=== PATIENT | male | born 2005 | race Caucasian/White ===

== ENCOUNTER 2023-06-17 09:14 | Emergency (ER) | payer OTHER, SELFPAY ==
[2023-06-17 09:25] VITALS: BP 121/71; PULSE 86; RESP 20; TEMP 36.8; O2SAT 100; BMI 18.9
--- NOTE | 2023-06-17 14:20 | ED_ITS ---
HPI - General Adult General Chief complaint: Anxiety Stated complaint: throat closing not sore diff breathing Time Seen by Provider: 06/17/23 13:15 History of Present Illness HPI narrative: Patient complains of episodes that resolve on their own, 3 episodes in the past week where he feels anxious he has tingling in his fingertips he feels like it is hard to catch his breath, and the main complaint is he feels like his throat is closing during these episodes, they resolve completely, he has had many similar episodes in the past but they have been more frequent and he has felt more anxious with these episodes he does not hear voices he does not use any street drugs, he does not drink he has no suicidal or homicidal thoughts, he has no chest pain, no irregular heartbeat no fainting or feeling faint Related Data Previous Rx's Medication Instructions Recorded lorazepam 0.5 mg tablet (Ativan) 0.5 mg PO DAILY PRN anxiety #10 06/17/23 tabs Allergies Allergy/AdvReac Type Severity Reaction Status Date / Time No Known Allergies Allergy Unverified 03/17/20 17:38 [No Known Allergies*] [facility] Past Medical History Source: nursing notes reviewed Social History Social History Advance Directives: No Advance Directives Information Provided: No Physical Exam ED Vital Signs: Vital Signs - 24 hr 06/17/23 09:25 Temperature 98.2 F Pulse Rate 86 Respiratory Rate 20 Blood Pressure 121/71 Pulse Oximetry 100 Oxygen Delivery Method Room Air BMI result Body Mass Index 18.9 General appearance is common comfortable cooperative alert no difficulty breathing or swallowing speaking full sentences The pharynx is clear without redness swelling or exudate, voice is normal, there is no drooling no trismus, throat is palpated during swallowing and he swallows easily The neck is supple, there is no stridor Chest is clear to auscultation with full symmetric of breath sounds Heart no murmur, rate and rhythm regular Extremities full range of motion x4 Skin no rash Neuro gait and balance are normal, interaction comprehension and expression are normal, motor is 5/5 x4, no focal deficits Course Course Course Narrative: Well-appearing patient with a history of mild anxiety who is having more frequent and severe episodes of anxiety attacks that now included feeling that his throat is closing, they may have been triggered by family difficulty in that his parents may be He has no thoughts of self-harm no suicidal thoughts no hearing voices He is asymptomatic now and feels fine at this moment and gives a very good description of anxiety attacks, he has never abused any substance and 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 I discussed writing a trial of Ativan, and he understands that it is a treatment only for acute anxiety attacks it is not preventive and it is habit forming if use to frequently or abused Discharge Plan Discharge Clinical Impression: Anxiety Patient Disposition: Home, Self-Care Additional Instructions: Your exam was totally normal, your vital signs are normal The symptoms you described including a feeling of throat closing that resolves fully are consistent with anxiety attacks The medication Ativan is usually very effective in treating anxiety attacks, but it can make you sleepy or drowsy in make it unsafe to drive so this medicine should not be used when you are driving or operating machinery It is habit forming so should only be used as needed, it is not a regular treatment for anxiety If the symptoms happen frequently talk to primary care doctor about preventative medicines for anxiety which often have to be adjusted, there are many very effective medications if you need Return any time for suicidal thoughts chest pain any worse condition or any concerns Prescriptions: New lorazepam [Ativan] 0.5 mg tablet 0.5 mg PO DAILY PRN (Reason: anxiety) Qty: 10 0RF
== END 2023-06-17 14:39 | disposition home or self-care (01) ==
PROVIDERS: Emergency Provider Emergency Medicine; PCP Pediatrics
DX: F41.1 Generalized anxiety disorder (principal); F43.0 Acute stress reaction; R06.02 Shortness of breath
CPT/HCPCS: 99282; 99283

== ENCOUNTER 2023-11-05 06:47 | Emergency (ER) | payer OTHER, SELFPAY ==
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
[2023-11-05 06:56] VITALS: BP 144/74; BP 144/88; PULSE 107; PULSE 112; RESP 20; TEMP 37.1; O2SAT 99; BMI 21.0
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
[2023-11-05 07:50] LABS: MANUAL DIFF FLAG NO
[2023-11-05] MEDS: Ketorolac Tromethamine 30 MG/ML VIAL IVPUSH (07:53)
[2023-11-05 07:54] LABS: Basophils Percent Auto 0.4 % (0-2); Eosinophils Absolute Auto 0.2 X10*3/uL (0.0-0.4); Eosinophils Percent Auto 2.9 % (0-4); Hematocrit 43.5 % (42.0-52.0); Hemoglobin 14.9 g/dl (14.0-18.0); Imm Gran Abs Auto 0.02 X10*3/uL (0.00-0.03); Imm Gran Pct Auto 0.3 % (0.0-0.4); Lymphocytes Absolute Auto 2.4 X10*3/uL (1.2-4.9); Lymphocytes Percent Auto 32.1 % (20-40); Mean Corpuscular HGB Conc 34.3 g/dl (31.0-36.0); Mean Corpuscular Hemoglobin 30.9 pg (27.0-33.0); Mean Corpuscular Volume 90.2 fL (80.0-98.0); Mean Platelet Volume 9.8 fL (9.4-12.4); Monocytes Absolute Auto 0.6 X10*3/uL (0.1-1.2); Monocytes Percent Auto 7.3 % (2-11); Neutrophils Absolute Auto 4.3 x10*3/uL (2.0-8.3); Platelet Count 219 X10*3/uL (160-400); Red Blood Count 4.82 X10*6/uL (4.60-5.80); Red Cell Distribution Width 12.1 % (11.0-16.0); White Blood Count 7.5 X10*3/uL (4.8-10.8)
[2023-11-05] MEDS: Bacitracin Oint 0.9 GM PACKET 3 APPL TOPICAL (07:54)
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
[2023-11-05 08:08] LABS: INTERNATIONAL NORM RATIO 1.1 (0.9-1.1); Prothrombin Time 13.4 SEC (11.1-13.3)
[2023-11-05 08:10] LABS: Alanine Aminotransferase 34 U/L (0-40); Albumin Level 4.5 g/dL (3.5-5.0); Alkaline Phosphatase 86 U/L (39-117); Anion Gap 18 (12-20); Aspartate Amino Transferase 35 U/L (5-37); Bilirubin Total 0.5 mg/dL (0.0-1.0); Blood Urea Nitrogen 13 mg/dL (9-16); Calcium 9.8 mg/dL (8.4-10.2); Carbon Dioxide 24 mmol/L (22-29); Chloride 104 mmol/L (96-108); Estimated Glomerular Filt Rate > 60; Glucose Random 112 mg/dL (60-115); Magnesium 1.8 mg/dL (1.6-2.6); Potassium 3.6 mmol/L (3.3-5.1); Sodium 142 mmol/L (135-145); Total Protein 7.9 g/dL (6.5-8.0)
[2023-11-05 10:13] VITALS: BP 120/71; PULSE 101; RESP 12; TEMP 37.1; O2SAT 99
--- NOTE | 2023-11-05 10:25 | MHC.EDTECH ---
with verbal orders from RN, bacitracin was placed on pt's left ankle wound and left should wound. both abrasions are not actively bleeding, are dry and pink and color. pt tolerated well, rn aware
[2023-11-05] MEDS: Acetaminophen 325 MG TABLET 975 MG PO (10:47)
[2023-11-05] MEDS: iohexoL 350 MG/ML 100 ML INFUS..BTL 85 ML IV (11:24)
[2023-11-05 12:40] VITALS: BP 108/64; PULSE 97; RESP 14; TEMP 37.4; O2SAT 100
[2023-11-05 14:35] VITALS: BP 108/64; PULSE 97; RESP 14; TEMP 37.4; O2SAT 100
== END 2023-11-05 14:35 | disposition home or self-care (01) ==
PROVIDERS: Physician Assistant; Emergency Provider Emergency Medicine Emergency Medical Services
DX: S06.0X0A Concussion without loss of consciousness, initial encounter (principal); S93.402A Sprain of unspecified ligament of left ankle, initial encounter; S51.012A Laceration without foreign body of left elbow, initial encounter; S90.512A Abrasion, left ankle, initial encounter; S40.212A Abrasion of left shoulder, initial encounter; S70.211A Abrasion, right hip, initial encounter; G89.11 Acute pain due to trauma; M79.672 Pain in left foot; M71.50 Other bursitis, not elsewhere classified, unspecified site; V28.49XA Other motorcycle driver injured in noncollision transport accident in traffic accident, initial encounter; Y93.9 Activity, unspecified; Y92.410 Unspecified street and highway as the place of occurrence of the external cause; Y99.9 Unspecified external cause status
CPT/HCPCS: 12001; 36415; 70450; 71260; 72125; 73030; 73200; 73610; 74177; 80053; 83735; 85025; 85610; 96374; 99284; J1885; Q9967

== ENCOUNTER 2023-11-15 10:27 | Outpatient (AMB) | payer OTHER, SELFPAY ==
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
== END 2023-11-15 11:27 | disposition home or self-care (01) ==
PROVIDERS: Visit Provider Physician Assistant
DX: S40.212A Abrasion of left shoulder, initial encounter (principal); S50.312A Abrasion of left elbow, initial encounter; S92.355A Nondisplaced fracture of fifth metatarsal bone, left foot, initial encounter for closed fracture; Z04.3 Encounter for examination and observation following other accident
CPT/HCPCS: 99204

== ENCOUNTER 2023-11-15 10:27 | Outpatient (REF) | payer OTHER, SELFPAY ==
--- NOTE | ~2023-11-15 | XR_ITS ---
EXAMINATION: XR FOOT, LEFT CLINICAL INFORMATION: Pain in the foot COMPARISON: None available. TECHNIQUE: AP, lateral, and oblique views of the left foot. FINDINGS: This exam is submitted for review 12/01/2023. Suspect nondisplaced incomplete fracture along the lateral cortex of the proximal fifth metatarsal in the metaphyseal region. The bones joints soft tissues are otherwise unremarkable.. XR/XR foot LT min 3V IMPRESSION: Suspect nondisplaced incomplete fracture of the proximal fifth metatarsal.
== END 2023-11-15 10:28 | disposition home or self-care (01) ==
LOC: HO.HOSX 10:27
PROVIDERS: Visit Provider Physician Assistant
DX: S92.355A Nondisplaced fracture of fifth metatarsal bone, left foot, initial encounter for closed fracture (principal); S40.212A Abrasion of left shoulder, initial encounter; S50.312A Abrasion of left elbow, initial encounter
CPT/HCPCS: 73630

== ENCOUNTER 2023-12-13 08:57 | Outpatient (REF) | payer OTHER, SELFPAY | END 2023-12-13 08:58 | disposition home or self-care (01) | LOC: HO.HOSX 08:57 | PROVIDERS: Visit Provider Physician Assistant | DX: Z13.89 Encounter for screening for other disorder (principal) ==

== ENCOUNTER 2024-10-25 01:55 | Emergency (ER) | payer OTHER, SELFPAY ==
[2024-10-25 01:59] VITALS: BP 114/77; PULSE 85; RESP 16; TEMP 36.8; O2SAT 98; BMI 18.5
--- NOTE | 2024-10-25 02:00 | PC.NURSE ---
per MD Perez, to hold off on imaging until patient is evaluated in ED.
--- OUTSIDE RECORDS SUMMARY | 2024-10-25 03:20 | XMS_ITS | Encounter Summary ---
Author Organization [facility] Address [address] [place] [address] Phone Care Team Providers Care Drawing In Machine Tender Helper Name Role Phone Cedrick Vigil MD Primary Care Provider [phone] Encounter Details Date Type Department Care Team (Late st Contact Info) Description 05/04/2016 Documentation [facility] [place] Family Medicine [address] [place] [address] Family Medicine, Physician [address] [place], [place] [phone] Social History Tobacco Use Types Packs/Day Years Used Date Smoking Tobacco: Never Assessed Sex and Gender Information Value Date Recorded Sex Assigned at Not on file Legal Sex Male 5:14 PM EDT Gender Identity Not on file Sexual Orientation Not on file documented as of this encounter Plan of Treatment Not on file documented as of this encounter Visit Diagnoses Not on filedocumented in this encounter Care Teams Drawing In Machine Tender Helper Relationship Specialty Start Date End Date Cedrick Vigil MD [address] [facility] [place] [address] PCP - General 02/08/17 04/28/24 documented as of this encounter
--- OUTSIDE RECORDS SUMMARY | 2024-10-25 03:20 | XMS_ITS | Encounter Summary ---
Author Organization [facility] Address [address] [place] [address] Phone Care Team Providers Care Hearing Examiner Name Role Phone Cedrick Vigil MD Primary Care Provider [phone] Encounter Details Date Type Department Care Team (Late st Contact Info) Description 05/04/2016 Documentation [facility] [place] Family Medicine [address] [place] [address] Family Medicine, Physician [address] [place], [place] [phone] Social History Tobacco Use Types Packs/Day Years [...] on filedocumented in this encounter Care Teams Hearing Examiner Relationship Specialty Start Date End Date Cedrick Vigil MD [address] [facility] [place] [address] PCP - General 02/08/17 04/28/24 documented as of this encounter
--- OUTSIDE RECORDS SUMMARY | 2024-10-25 03:20 | XMS_ITS | Encounter Summary ---
Author Organization [facility] Address [address] [place] [address] Phone Care Team Providers Care Drapery Supervisor Name Role Phone Cedrick Vigil MD Primary Care Provider [phone] Encounter Details Date Type Department Care Team (Late st Contact Info) Description 05/04/2016 Documentation [facility] [place] [address] [place] [address] Family Medicine, Physician [address] [place], [place] [phone] Social History Tobacco Use Types Packs/Day Years [...] on filedocumented in this encounter Care Teams Drapery Supervisor Relationship Specialty Start Date End Date Cedrick Vigil MD [address] [facility] [place] [address] PCP - General 02/08/17 04/28/24 documented as of this encounter
--- OUTSIDE RECORDS SUMMARY | 2024-10-25 03:20 | XMS_ITS | Encounter Summary ---
Author Organization [facility] Address [address] [place] [address] Phone Care Team Providers Care Propulsion Motor And Generator Repairer Name Role Phone Cedrick Vigil MD Primary Care Provider [phone] Encounter Details Date Type Department Care Team (Late st Contact Info) Description 05/04/2016 Documentation [facility] [place] Family Medicine [address] [place] [address] Family Medicine, Physician [address] [place], [place] [phone] Social History Tobacco Use Types Packs/Day Years [...] on filedocumented in this encounter Care Teams Propulsion Motor And Generator Repairer Relationship Specialty Start Date End Date Cedrick Vigil MD [address] [facility] [place] [address] PCP - General 02/08/17 04/28/24 documented as of this encounter
--- OUTSIDE RECORDS SUMMARY | 2024-10-25 03:20 | XMS_ITS | Clinical Summary ---
Author Organization [facility] Address [address] [place] [address] Phone Care Team Providers Care Drying Supervisor Name Role Phone Unavailable Primary Care Provider Unavailabl e Allergies No known active allergies Medications Cholecalcifero l (Vitamin D) 50 MCG (1999) tablet Take 2,000 Units by mouth daily. Active fluticasone (Flonase) 50 MCG/ACT nasal sprayIndicatio ns:Post-nasal drip Administer 2 sprays into each nostril once daily at approximately the same time each day for 14 days, THEN 1 spray once daily at approximately the same time each day. 11.1 mL 3 2 Active cetirizine (ZyrTEC Allergy) 10 MG tabletIndicati ons:Post-nasal drip Take 1 tablet (10 mg total) by mouth once daily at approximately the same time each day. 30 tablet 3 2 Active Active Problems Problem Noted Date Diagnosed Date Anxiety 10/22/2021 Pes planus 05/04/2016 Immunizations Immunization Administration Dates Next Due COVID-19 Pfizer, monovalent, 12+ years 1,11/23/2020 DTaP 10/29/2007, 5,2003,08/27,2003 HPV Vaccine 9 Valent 10/21/2017,05/04/2016 Hep A, ped/adol 02/11/2014,12/01/2012 Hep B, ped/adol 08/10/2004,01/20/2004,2003 HiB 08/10/2004,2003,2003 Hib (PRP-T) 2003 IPV 10/29/2007, 4,2003,06/17 Influenza, injectable, quadrivalent 05/04/2016 Influenza, injectable, quadr ivalent, preservative free 04/05/2020,03/16/2019 Influenza, injectable, triva lent, preservative free 02/22/2015 MMR 10/29/2007,05/05/2004 Meningococcal Conj (Menactra) MCV4P 04/05/2020,0 02/22/2015 Pneumococcal Conjugate 13-Valent 12/08/2004,09/30,2003 Tdap 02/22/2015 Varicella 10/29/2007,12/08/2004 Family History Medical History Relation Name Comments Asthma Brother Asthma Father Ramon Migraines Mother Bar Relation Name Status Comments Brother Brother: Asthma Father Ramon Father: Asthma Mother Bar Mother: Migrain es, Alive and well Paternal Grandfather Paterna l grandfather: Obesity, High cholesterol, Diabetes mellitus Social History Tobacco Use Types Packs/Day Years Used Date Smoking Tobacco: Never Smokeless Tobacco: Never Hunger/Food Answer Date Recorded In the last 12 months, did y ou or your family ever eat less than you felt you should because there wasn't enough money for food? No 05/04/2021 Stable Housing Answer Date Recorded Are you worried that in the next 2 months you may not have stable housing? No 05/04/2021 Transportation Concerns Answer Date Rec orded In the last 12 months, have you or your family ever had to go without healthcare because you didn't have a way to get there? No 05/04/2021 Hazards in Home Answer Date Recorded Think about the place you li ve. Do you have problems with any of the following? Pests (mice or roaches), mold, no/not working smoke detectors, water leaks, no window guards. No 2020 Financing Utilities Answer Date Recorde d In the last 12 months, has t he electric, gas, oil, or water company threatened to shut off your services in your home? No 05/04/2021 Safety at Home Answer Date Recorded Are you or your family worried about feeling saf e in your home? No 05/04/2021 Outside Support Answer Date Recorded Do you feel that you need mo re support from other people or programs to help you care for yourself or your family? No 05/04/2021 Understanding Health Concerns Answer Da te Recorded Do you need help understandi ng your or your child's healthcare needs (diagnosis, medications, plan, etc.)? No 05/04/2021 Financing Health Concerns Answer Date R ecorded In the last 12 months, was t here a time when your child needed to see a doctor or get medications or supplies but could not because of cost? No 05/04/2021 Missing School or Work Answer Date Harsh rded Did you or your child miss s chool or work because of a health problem that could have been avoided? No 05/04/2021 Sex and Gender Information Value Date Recorded Sex Assigned at Not on file Legal Sex Male 5:14 PM EDT Gender Identity Not on file Sexual Orientation Not on file Last Filed Vital Signs Vital Sign Reading Time Taken Comments Blood Pressure 118/78 02/26/2022 4:14 PM EDT Pulse 79 02/26/2022 4:14 PM EDT Temperature 36.7 ??C (98 ??F) 02/26/2022 4:14 PM EDT Respiratory Rate - - Oxygen Saturation - - Inhaled Oxygen Concentration - - Weight 67 kg (147 lb 9.6 oz) 02/26/2022 4:14 PM EDT Height 184.8 cm (6' 0.75 ) 05/04/2021 1:26 PM ED T Body Mass Index 19.61 05/04/2021 1:26 PM EDT Plan of Treatment Health Maintenance Due Date Last Done Comments Men B Vaccine (1 of 2 - Standard) 2019 Influenza Vaccines (#1) 2024 04/05/20 20, 03/16/2019, 05/04/2016, Additional history exists COVID-19 Vaccine (3 - 2023-2 5 season) 2024 12/14/2020, 11/23/2020 DTaP,Tdap,and Td Vaccines (7 - Td or Tdap) 02/22/2025 02/22/2015, 10/29/2007, 08/10/2004, Additional history exists HIB Vaccines Completed 08/10/2004, 09/30, 2003, Additional history exists Hepatitis B Vaccines Completed 08/10/2004, 01/20/2004, 2003 Pneumococcal Vaccine Completed 12/08/2004, 2003, 2003 IPV Vaccines Completed 10/29/2007, 10/2003, 2003, Additional history exists MMR Vaccines Completed 10/29/2007, 05/05/2004 Varicella Vaccines Completed 10/29/2007, 12/08/2004 Hepatitis A Vaccines Completed 02/11/2014, 12/02/19 13 HPV Vaccines Completed 10/21/2017, 05/04/2016 Meningococcal Vaccine Completed 04/05/2020, 015 Insurance [facility]
--- OUTSIDE RECORDS SUMMARY | 2024-10-25 03:20 | XMS_ITS | Encounter Summary ---
Author Organization [facility] Address [address] [place] [address] Phone Care Team Providers Care Cloud Software Engineer Name Role Phone Cedrick Vigil MD Primary Care Provider [phone] Encounter Details Date Type Department Care Team (Late st Contact Info) Description 05/04/2016 Documentation [facility] [place] Family Medicine [address] [place] [address] Family Medicine, Physician [address] [place], [place] [phone] Social History Tobacco Use Types Packs/Day Years [...] on filedocumented in this encounter Care Teams Cloud Software Engineer Relationship Specialty Start Date End Date Cedrick Vigil MD [address] [facility] [place] [address] PCP - General 02/08/17 04/28/24 documented as of this encounter
--- OUTSIDE RECORDS SUMMARY | 2024-10-25 03:20 | XMS_ITS | Encounter Summary ---
Author Organization [facility] Address [address] [place] [address] Phone Care Team Providers Care Senior Environmental Scientist Name Role Phone Cedrick Vigil MD Primary Care Provider [phone] Encounter Details Date Type Department Care Team (Late st Contact Info) Description 02/14/2017 Conversion Encounter [facility] [place] [address] [place] [address] Social History Tobacco Use Types Packs/Day Years [...] on filedocumented in this encounter Care Teams Senior Environmental Scientist Relationship Specialty Start Date End Date Cedrick Vigil MD [address] [place] [address] PCP - General 02/08/17 04/28/24 documented as of this encounter
--- OUTSIDE RECORDS SUMMARY | 2024-10-25 03:20 | XMS_ITS | Encounter Summary ---
Author Organization [facility] Address [address] [place] [address] Phone Care Team Providers Care Technology Officer Name Role Phone Cedrick Vigil MD Primary Care Provider [phone] Encounter Details Date Type Department Care Team (Late st Contact Info) Description 05/04/2016 Documentation [facility] [place] Family Medicine [address] [place] [address] Family Medicine, Physician [address] [place], [place] [phone] Social History Tobacco Use Types Packs/Day Years [...] on filedocumented in this encounter Care Teams Technology Officer Relationship Specialty Start Date End Date Cedrick Vigil MD [address] [facility] [place] [address] PCP - General 02/08/17 04/28/24 documented as of this encounter
--- NOTE | 2024-10-25 04:08 | PC.NURSE ---
Pt states girlfriend is tired and wants to go home to sleep . LWBS at this time.
== END 2024-10-25 04:12 | disposition left against medical advice (07) ==
PROVIDERS: Emergency Provider Emergency Medicine
DX: R51.9 Headache, unspecified (principal); R11.2 Nausea with vomiting, unspecified; Z53.21 Procedure and treatment not carried out due to patient leaving prior to being seen by health care provider
CPT/HCPCS: 99281

== ENCOUNTER 2024-11-20 10:58 | Outpatient (AMB) | payer OTHER, SELFPAY ==
--- NOTE | 2024-11-20 11:01 | A.OFFPC_ITS ---
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 there are several other numbers to call depending on your needs: Occitan Language: Deaf and Hard of [phone] Veterans: Disaster Distress: Anyone can also use their online chat feature on their website. National Suicide Prevention Lifeline [facility] Helpline: The [facility] Helpline is available to anyone in [place] who is need of emotional support. Anyone can call or text the helpline to receive help from specially trained volunteers. [place] high school and college students can also get online support through the IMHear_ program. For high school students, volunteers ages 15-18 are available Saturday- from 6-9PM. For college students, IMHear_ is available Saturday-Saturday from 5-9PM. The Mekhi Project - The Mekhi Project is a 21/01 crisis intervention and suicide prevention hotline for LGBTQ youth. Youth can also text Mekhi to for support, or use the online chat feature on the Mekhi Project's website. TrevorText is available Saturday-Saturday between 3-10PM. TrevorChat is available seven days a week between 3-10PM. SafeLink: SafeLink is for anyone who is being affected by domestic violence or dating violence. Volunteers at [employer] speak Burkinan and Occitan, and [employer] also has a service that can provide translation in more than 130 languages. TTY: Health screenings for men You should visit your health care provider regularly, even if you feel healthy. The purpose of these visits is to: Screen for medical issues Assess your risk for future medical problems Encourage a healthy lifestyle Update vaccinations and other preventive care services Help you get to know your provider in case of an illness Information Even if you feel fine, you should still see your provider for regular checkups. These visits can help you avoid problems in the future. For example, the only way to find out if you have high blood pressure is to have it checked regularly. High blood sugar and high cholesterol level also may not have any symptoms in the early stages. Simple blood tests can check for these conditions. There are specific times when you should see your provider or receive specific health screenings. The US Preventive Services Task Force publishes a list of recommended screenings. Below are screening guidelines for men ages 40 to 64. BLOOD PRESSURE SCREENING Have your blood pressure checked at least once every year. Watch for blood pressure screenings in your area. Ask your provider if you can stop in to have your blood pressure checked. Ask your provider if you need your blood pressure checked more often if: You have diabetes, heart disease, kidney problems, or are overweight or have certain other health conditions You have a first-degree relative with high blood pressure You are Black Your blood pressure top number is from 120 to 129 mm Hg, or the bottom number is from 70 to 79 mm Hg If the top number is 130 mm Hg or greater or the bottom number is 80 mm Hg or greater, this is considered stage 1 hypertension. Schedule an appointment with your provider to learn how you can lower your blood pressure. Effects of age on blood pressure CHOLESTEROL SCREENING Cholesterol screening should begin at age 35 for men with no known risk factors for coronary heart disease. Repeat cholesterol screening should take place: Every 5 years for men with normal cholesterol levels More often if changes occur in lifestyle (including weight gain and diet) More often if you have diabetes, heart disease, kidney problems, or certain other conditions COLORECTAL CANCER SCREENING If you are under age 45, talk to your provider about getting screened. You may need to be screened if you have a strong family history of colon cancer or polyps. Screening may also be considered if you have risk factors such as a history of inflammatory bowel disease or polyps. If you are age 45 to 75, you should be screened for colorectal cancer. There are several screening tests available: A stool-based fecal occult blood (gFOBT) or fecal immunochemical test (FIT) every year A stool sDNA test every 1 to 3 years Flexible sigmoidoscopy every 5 years or every 10 years with stool testing FIT done every year CT colonography (virtual colonoscopy) every 5 years Colonoscopy every 10 years You may need a colonoscopy more often if you have risk factors for colorectal cancer, such as: Ulcerative colitis A personal or family history of colorectal cancer A history of growths in your colon called adenomatous polyps DENTAL EXAM Go to the dentist once or twice every year for an exam and cleaning. Your dentist will evaluate if you have a need for more frequent visits. DIABETES SCREENING All adults who do not have risk factors for diabetes should be screened starting at age 35 and repeated every 3 years. If you have other risk factors for diabetes, such as a first degree relative with diabetes, overweight or obesity, high blood pressure, prediabetes, or a history of heart disease, you may be tested more often. If you are overweight and have other risk factors, such as high blood pressure and are planning to become , screening is recommended. EYE EXAM Have an eye exam every 2 to 4 years ages 40 to 54 and every 1 to 3 years ages 55 to 64. Your provider may recommend more frequent eye exams if you have vision problems or glaucoma risk. Have an eye exam that includes an examination of your retina (back of your eye) at least every year if you have diabetes. IMMUNIZATIONS Commonly needed vaccines include: Flu shot: get one every year COVID-19 vaccine: ask your provider what is best for you Tetanus-diphtheria and acellular pertussis (Tdap) vaccine: have as one of your tetanus-diphtheria vaccines if you did not receive it as an adolescent Tetanus-diphtheria: have a booster (or Tdap) every 10 years Varicella vaccine: receive 2 doses if you never had chickenpox or the varicella vaccine and were born in 1980 or after Hepatitis B vaccine: receive 2, 3, or 4 doses, depending on your exact circumstances, if you did not receive these as a child or adolescent, until age 59 Shingles (herpes zoster) vaccine: at or after age 50 Ask your provider if you should receive other immunizations, especially if you have certain medical conditions, such as diabetes or are at increased risk for some diseases such as pneumonia. INFECTIOUS DISEASE SCREENING Screening for hepatitis C: all adults ages 18 to 79 should get a one-time test for hepatitis C. Screening for human immunodeficiency virus (HIV): all people ages 15 to 65 should get a one-time test for HIV. Depending on your lifestyle and medical history, you may need to be screened for infections such as syphilis, chlamydia, and other infections. LUNG CANCER SCREENING You should have an annual screening for lung cancer with low-dose computed tomography (LDCT) if: You are age 50 to 80 years AND You have a 20 pack-year smoking history AND You currently smoke or have quit within the past 15 years OSTEOPOROSIS SCREENING If you are age 50 to 64 and have risk factors for osteoporosis, you should discuss screening with your provider. Risk factors can include long-term steroid use, low body weight, smoking, heavy alcohol use, having a fracture after age 50, or a family history of hip fracture or osteoporosis. Osteoporosis PHYSICAL EXAM All adults should visit their provider from time to time, even if they are healthy. The purpose of these visits is to: Screen for diseases Assess risk of future medical problems Encourage a healthy lifestyle Update vaccinations and other preventive care services Maintain a relationship with a provider in case of an illness Your height, weight, and body mass index (BMI) should be checked at every exam. During your exam, your provider may ask you about: Depression and anxiety Diet and exercise Alcohol and tobacco use Safety, such as use of seat belts and smoke detectors Your medicines and risk for interactions PROSTATE CANCER SCREENING If you're 55 through 69 years old, before having the test, talk to your provider about the pros and cons of having a PSA test. Ask about: Whether screening decreases your chance of dying from prostate cancer. Whether there is any harm from prostate cancer screening, such as side effects from testing or overtreatment of cancer when discovered. Whether you have a higher risk of prostate cancer than others. If you are age 55 or younger, screening is not generally recommended. You should talk with your provider about if you have a higher risk for prostate cancer. Risk factors include: Having a family history of prostate cancer (especially a brother or father) Being If you choose to be tested, the PSA blood test is repeated over time (yearly or less often), though the best frequency is not known. Prostate examinations are no longer routinely done on men with no symptoms. Prostate cancer SKIN EXAM Your provider may check your skin for signs of skin cancer, especially if you're at high risk. People at high risk include those who have had skin cancer before, have close relatives with skin cancer, or have a weakened immune system. TESTICULAR EXAM The US Preventive Services Task Force (USPSTF) now recommends against performing testicular self-exams. Doing testicular self-exams has been shown to have little to no benefit.
[2024-11-20 11:06] VITALS: BP 117/66; PULSE 69; RESP 12; TEMP 36.1; O2SAT 98; BMI 20.1
--- OUTSIDE RECORDS SUMMARY | 2024-11-20 11:06 | XMS_ITS | Encounter Summary ---
Author Organization [facility] Address [address] [place] [address] Phone Care Team Providers Care Pharmaceutical Plant Operator Name Role Phone Cedrick Vigil MD Primary Care Provider [phone] Encounter Details Date Type Department Care Team (Late st Contact Info) Description 02/14/2017 Conversion Encounter [facility] [place] [address] [place] [address] Social History Tobacco Use Types Packs/Day Years [...] on filedocumented in this encounter Care Teams Pharmaceutical Plant Operator Relationship Specialty Start Date End Date Cedrick Vigil MD [address] [place] [address] PCP - General 02/08/17 04/28/24 documented as of this encounter
== END 2024-11-20 11:43 | disposition home or self-care (01) ==
LOC: HO.HMCFM 10:59
PROVIDERS: PCP Nurse Practitioner Family; Visit Provider Nurse Practitioner Family
DX: Z00.00 Encounter for general adult medical examination without abnormal findings (principal); J45.20 Mild intermittent asthma, uncomplicated; Z76.89 Persons encountering health services in other specified circumstances; F41.1 Generalized anxiety disorder; Z28.21 Immunization not carried out because of patient refusal; Z80.0 Family history of malignant neoplasm of digestive organs; L70.0 Acne vulgaris

== ENCOUNTER → 2024-11-20 10:58 | Outpatient (BNVA) | payer OTHER, SELFPAY | PROVIDERS: PCP Nurse Practitioner Family; Visit Provider Nurse Practitioner Family | DX: Z13.89 Encounter for screening for other disorder (principal) ==

== ENCOUNTER 2024-11-20 11:35 | Outpatient (REF) | payer OTHER, SELFPAY ==
[2024-11-20 14:24] LABS: Hematocrit 40.5 % (42.0-52.0); Hemoglobin 14.2 g/dl (14.0-18.0); Mean Corpuscular HGB Conc 35.1 g/dl (31.0-36.0); Mean Corpuscular Hemoglobin 30.8 pg (27.0-33.0); Mean Corpuscular Volume 87.9 fL (80.0-98.0); Mean Platelet Volume 10.5 fL (9.4-12.4); Platelet Count 220 X10*3/uL (160-400); Red Blood Count 4.61 X10*6/uL (4.60-5.80); White Blood Count 5.5 X10*3/uL (4.8-10.8)
[2024-11-20 14:35] LABS: Estimated Average Glucose 105 mg/dL; Hemoglobin A1C 126.7777 umol/L; Hemoglobin A1c % 5.3 % (<6.0); Total Hemoglobin (HGBA1C) 3737.7129 umol/L
[2024-11-20 14:45] LABS: Alanine Aminotransferase 26 U/L (0-40); Albumin Level 4.6 g/dL (3.5-5.0); Alkaline Phosphatase 79 U/L (39-117); Anion Gap 10 (12-20); Aspartate Amino Transferase 32 U/L (5-37); Bilirubin Total 0.8 mg/dL (0.0-1.0); Blood Urea Nitrogen 14 mg/dL (9-16); Calcium 9.5 mg/dL (8.4-10.2); Carbon Dioxide 25 mmol/L (22-29); Chloride 109 mmol/L (96-108); Cholesterol 128 mg/dL (<200); Estimated Glomerular Filt Rate > 60; Glucose Random 95 mg/dL (60-115); HDL Cholesterol 50 mg/dL (>40); LDL Cholesterol Calculated 68 mg/dL (<100); Potassium 3.5 mmol/L (3.3-5.1); Sodium 140 mmol/L (135-145); Total Protein 7.3 g/dL (6.5-8.0); Triglycerides 53 mg/dL (<150)
[2024-11-20 15:05] LABS: TSH reflex Free T4 0.91 uIU/mL (0.32-4.0)
[2024-11-20 15:13] LABS: Vitamin B12 261 pg/mL (200-900)
[2024-11-20 15:28] LABS: Creatinine Urine 183.16 mg/dL; Microalbum/Creatinine Ratio Ur 3.2 ug/mg cr (<30)
== END 2024-11-20 11:36 | disposition home or self-care (01) ==
LOC: HO.WFDLDS 11:35
PROVIDERS: Visit Provider Nurse Practitioner Family
DX: Z00.01 Encounter for general adult medical examination with abnormal findings (principal); Z76.89 Persons encountering health services in other specified circumstances; F41.1 Generalized anxiety disorder; J45.20 Mild intermittent asthma, uncomplicated; L70.0 Acne vulgaris; Z28.21 Immunization not carried out because of patient refusal; Z80.0 Family history of malignant neoplasm of digestive organs; Z13.1 Encounter for screening for diabetes mellitus
CPT/HCPCS: 36415; 80053; 80061; 82043; 82306; 82570; 82607; 82746; 83036; 84443; 85027; 96127

== ENCOUNTER 2025-01-29 14:52 | Outpatient (AMB) | payer OTHER, SELFPAY ==
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
--- OUTSIDE RECORDS SUMMARY | 2025-01-29 14:55 | XMS_ITS | Encounter Summary ---
Author Organization [facility] Address [address] [place] [address] Phone Care Team Providers Care Lathe Turner Name Role Phone Cedrick Vigil MD Primary Care Provider [phone] Encounter Details Date Type Department Care Team (Late st Contact Info) Description 02/14/2017 Conversion Encounter [facility] [place] [address] [place] [address] Social History Tobacco Use Types Packs/Day Years [...] on filedocumented in this encounter Care Teams Lathe Turner Relationship Specialty Start Date End Date Cedrick Vigil MD [address] [place] [address] PCP - General 02/08/17 04/28/24 documented as of this encounter
--- OUTSIDE RECORDS SUMMARY | 2025-01-29 14:55 | XMS_ITS ---
Author Name [facility] Organization Unknown Care Team Organization Name Specialty Phone Email Start Date End [facility]
[2025-01-29 15:00] VITALS: BP 98/66; PULSE 72; RESP 12; TEMP 36.2; O2SAT 98; BMI 19.6
== END 2025-01-29 15:23 | disposition home or self-care (01) ==
LOC: HO.HMCFM 14:53
PROVIDERS: PCP Nurse Practitioner Family; Visit Provider Nurse Practitioner Family
DX: F41.1 Generalized anxiety disorder (principal); Z23 Encounter for immunization; J45.20 Mild intermittent asthma, uncomplicated

== ENCOUNTER → 2025-01-29 14:52 | Outpatient (BNVA) | payer OTHER, SELFPAY | PROVIDERS: PCP Nurse Practitioner Family; Visit Provider Nurse Practitioner Family | DX: F41.1 Generalized anxiety disorder (principal); Z23 Encounter for immunization; J45.20 Mild intermittent asthma, uncomplicated; Z13.31 Encounter for screening for depression; Z13.39 Encounter for screening examination for other mental health and behavioral disorders | CPT/HCPCS: 90471; 90715; 96127; 96160 ==